=== PATIENT | male | born 1975 | race Caucasian/White ===

== ENCOUNTER 2019-09-05 02:59 | Emergency (ER) | payer BC ==
[~2019-09-05] VITALS: Ht 180.3 cm; Wt 122.5 kg
[2019-09-05] MEDS ORDERED: Ultram50 MG PO (03:25)
[2019-09-05 04:33] LABS: Source, Urine Clean Catch
[2019-09-05 04:36] LABS: Bilirubin, Urine Neg (Neg); Blood, Urine Neg (Neg); Glucose Qualitative, Urine Neg (Neg); Ketones, Urine Neg (Neg); Leukocyte Esterase, Urine Neg (Neg); Nitrite, Urine Neg (Neg); Protein, Urine Neg (Neg); Urobilinogen, Urine NORM (Normal)
[2019-09-05 04:41] LABS: Appearance, Urine Clear (Clear); Color, Urine Yellow (P-Yellow)
[2019-09-05] MEDS ORDERED: Prednisone20 MG PO (05:38)
[2019-09-05] MEDS ORDERED: CYCL10 PO (05:38)
== END 2019-09-05 05:55 | disposition home or self-care (01) ==
LOC: ER 02:59
PROVIDERS: Emergency Medicine
DX: M54.5 Low back pain (principal)
CPT/HCPCS: 81003; 96372; 99283-25; A9270; J1170; J1885

== ENCOUNTER 2021-03-27 23:24 | Emergency (ER) | payer BC ==
[~2021-03-27] VITALS: Ht 180.3 cm; Wt 117.9 kg
[~2021-03-27 23:24] MED LIST: CYCL10 PO; Prednisone20 MG PO; Ultram50 MG PO
[2021-03-28] MEDS ORDERED: CYCL10 PO (00:42)
[2021-03-28] MEDS ORDERED: LISI20 PO (01:05)
== END 2021-03-28 01:45 | disposition home or self-care (01) ==
LOC: ER 23:24
DX: S39.012A Strain of muscle, fascia and tendon of lower back, initial encounter (principal); Z79.899 Other long term (current) drug therapy; Z79.52 Long term (current) use of systemic steroids; X50.9XXA Other and unspecified overexertion or strenuous movements or postures, initial encounter
CPT/HCPCS: 99283; A9270

== ENCOUNTER 2025-01-18 03:15 | Emergency (ER) | payer BC ==
[~2025-01-18] VITALS: Ht 180.3 cm; Wt 136.1 kg
[~2025-01-18 03:15] MED LIST changes: +LISI20 PO
[2025-01-18 04:28] LABS: BASOPHILS ABSOLUTE AUTO 0.04 K/mm3 (0.00-0.23); BASOPHILS PERCENT AUTO 0 % (0-2); EOSINOPHILS ABSOLUTE AUTO 0.05 K/mm3 (0.00-0.68); EOSINOPHILS PERCENT AUTO 1 % (0-6); Hematocrit 37.9 % (37.0-53.0); Hemoglobin 13.4 g/dL (13.5-17.5); IMMATURE GRAN ABSOLUTE AUTO 0.03 K/mm3 (0.00-0.10); IMMATURE GRAN PERCENT AUTO 0 % (0-1); LYMPHOCYTES ABSOLUTE AUTO 0.91 K/mm3 (0.84-5.20); LYMPHOCYTES PERCENT AUTO 9 % (21-46); MONOCYTES ABSOLUTE AUTO 0.72 K/mm3 (0.16-1.47); MONOCYTES PERCENT AUTO 7 % (4-13); Mean Corpuscular HGB 30.5 pg (26.0-34.0); Mean Corpuscular HGB Conc 35.4 g/dL (31.5-36.5); Mean Corpuscular Volume 86 fL (80-100); Mean Platelet Volume 9.7 fL (9.1-12.4); NEUTROPHILS ABSOLUTE AUTO 8.17 K/mm3 (1.96-9.15); NEUTROPHILS PERCENT AUTO 82 % (41-73); Platelet Count 314 K/mm3 (150-400); RDW Standard Deviation 41.2 fL (35.1-46.3); White Blood Cell Count 9.92 K/mm3 (4.00-11.30)
[2025-01-18 04:52] LABS: Albumin, Blood 3.3 g/dL (3.4-5.0); Albumin/Globulin Ratio 0.7 (0.8-1.8); Bilirubin, Total 1.5 mg/dL (0.1-1.0); Bun/Creatinine Ratio 11.4 (12.0-20.0); Calcium, Blood 9.1 mg/dL (8.5-10.1); Creatinine, Blood 0.97 mg/dL (0.60-1.20); Globulin, Blood 4.6 g/dL (2.2-4.0); Potassium, Blood 3.6 mmol/L (3.5-5.5); Total Protein, Blood 7.9 g/dL (6.4-8.2)
[2025-01-18] MEDS ORDERED: NS 1,000 ML IV SCH (04:55)
[2025-01-18] MEDS ORDERED: Ketorolac Tromethamine 30mg Vial IV ONE (05:00)
[2025-01-18 05:04] LABS: Influenza A, PCR NEGATIVE (NEGATIVE); Influenza B, PCR NEGATIVE (NEGATIVE); Resp Syncytial Virus, PCR NEGATIVE (NEGATIVE); SARS-Cov-2 (COVID-19) PCR, MMC NEGATIVE (NEGATIVE)
[2025-01-18 05:54] LABS: Source, Urine Clean Catch
[2025-01-18] MEDS ORDERED: Amoxicillin/Clavulanate K 875 MG Tab PO ONE (05:55)
[2025-01-18] MEDS ORDERED: Azithromycin 250 MG Tab PO ONE (05:55)
[2025-01-18] MEDS ORDERED: AMOCLA875 PO (05:57)
[2025-01-18] MEDS ORDERED: AZIT250 PO (05:57)
[2025-01-18 05:59] LABS: Appearance, Urine Clear (Clear); Bilirubin, Urine Neg (Neg); Blood, Urine 2+ (Neg); Color, Urine Yellow (P-Yellow); Glucose Qualitative, Urine 4+ (Neg); Ketones, Urine 2+ (Neg); Leukocyte Esterase, Urine Neg (Neg); Nitrite, Urine Neg (Neg); Protein, Urine 2+ (Neg); Urobilinogen, Urine 1+ (Normal)
[2025-01-18 06:27] LABS: Bacteria Rare /hpf; Red Blood Cells, Urine 0-2 /hpf (0-2); Squamous Epithelial Cells Rare /hpf (Few); White Blood Cells, Urine 0-2 /hpf (0-5)
[2025-01-18 06:29] LABS: Amorphous Light (0-Heavy)
[2025-01-18 06:45] VITALS: BP 123/74
[2025-01-18] MEDS ORDERED: ATORVASTATIN CA20 MG PO (17:04)
[2025-01-18] MEDS ORDERED: BASAGLAR K100 UNIT/1 SC (20:20)
[2025-01-18] MEDS ORDERED: JARDIANCE10 MG PO (20:21)
[2025-01-18] MEDS ORDERED: Lipitor20 MG PO (20:22)
[2025-01-18] MEDS ORDERED: PIOG30 PO (20:23)
[2025-01-19] MEDS ORDERED: Prinivil10 MG PO (14:34)
== END 2025-01-18 06:47 | disposition home or self-care (01) ==
LOC: ER 03:15
PROVIDERS: Emergency Medicine
DX: J18.9 Pneumonia, unspecified organism (principal); E86.0 Dehydration; R73.9 Hyperglycemia, unspecified; Z79.899 Other long term (current) drug therapy
CPT/HCPCS: 0241U; 71046; 80053; 81001; 83690; 85025; 96374; 99284-25; J1885; J7030

== ENCOUNTER 2025-01-18 15:26 | Inpatient (IN) | payer BC ==
[~2025-01-18] VITALS: Ht 180.3 cm; Wt 128.1 kg
[~2025-01-18 15:26] MED LIST changes: +AMOCLA875 PO; +AZIT250 PO
[2025-01-18] MEDS ORDERED: Ondansetron HCl 2 MG / ML 2ML Vial IV ONE (15:35)
[2025-01-18 15:54] LABS: BASOPHILS ABSOLUTE AUTO 0.05 K/mm3 (0.00-0.23); BASOPHILS PERCENT AUTO 0 % (0-2); EOSINOPHILS PERCENT AUTO 1 % (0-6); Hematocrit 37.6 % (37.0-53.0); Hemoglobin 13.2 g/dL (13.5-17.5); IMMATURE GRAN ABSOLUTE AUTO 0.05 K/mm3 (0.00-0.10); IMMATURE GRAN PERCENT AUTO 0 % (0-1); LYMPHOCYTES ABSOLUTE AUTO 1.93 K/mm3 (0.84-5.20); LYMPHOCYTES PERCENT AUTO 17 % (21-46); MONOCYTES ABSOLUTE AUTO 0.95 K/mm3 (0.16-1.47); MONOCYTES PERCENT AUTO 8 % (4-13); Mean Corpuscular HGB 30.6 pg (26.0-34.0); Mean Corpuscular HGB Conc 35.1 g/dL (31.5-36.5); Mean Corpuscular Volume 87 fL (80-100); Mean Platelet Volume 9.6 fL (9.1-12.4); NEUTROPHILS ABSOLUTE AUTO 8.42 K/mm3 (1.96-9.15); NEUTROPHILS PERCENT AUTO 73 % (41-73); Platelet Count 360 K/mm3 (150-400); RDW Coefficient Variation 13.1 % (11.7-14.2); RDW Standard Deviation 42.3 fL (35.1-46.3); Red Blood Cell Count 4.31 M/mm3 (4.30-5.90)
[2025-01-18] MEDS ORDERED: CefTRIAXone Sodium 1,000 MG in NS 100 ML IV ONE (16:00)
[2025-01-18] MEDS ORDERED: NS 1,000 ML IV SCH (16:00)
[2025-01-18] MEDS ORDERED: Metoclopramide HCl 5MG / ML 2ML Vial IV ONE (16:00)
[2025-01-18] MEDS ORDERED: Azithromycin 500 MG in NS 250 ML IV ONE (16:00)
[2025-01-18] MEDS ORDERED: Ketorolac Tromethamine 15mg Vial IV ONE (16:00)
[2025-01-18 16:18] LABS: Albumin, Blood 3.3 g/dL (3.4-5.0); Albumin/Globulin Ratio 0.7 (0.8-1.8); Bilirubin, Total 1.3 mg/dL (0.1-1.0); Bun/Creatinine Ratio 12.6 (12.0-20.0); Calcium, Blood 8.5 mg/dL (8.5-10.1); Creatinine, Blood 1.03 mg/dL (0.60-1.20); Globulin, Blood 4.5 g/dL (2.2-4.0); Potassium, Blood 3.7 mmol/L (3.5-5.5); Total Protein, Blood 7.8 g/dL (6.4-8.2)
[2025-01-18] MEDS ORDERED: ATORVASTATIN CA20 MG PO (17:04)
[2025-01-18] MEDS ORDERED: Lactated Ringer's 1,000 ML IV ONE (17:20)
[2025-01-18] MEDS ORDERED: Guaifenesin/Dextromethorphan Syrup 5 ML UDC PO PRN (17:25)
[2025-01-18] MEDS ORDERED: Ondansetron HCl 2 MG / ML 2ML Vial IV PRN (17:25)
[2025-01-18] MEDS ORDERED: Lactated Ringer's 1,000 ML IV SCH (17:25)
[2025-01-18] MEDS ORDERED: Acetaminophen 500 MG Tab PO ONE (18:00)
[2025-01-18] MEDS ORDERED: Acetaminophen 500 MG Tab PO PRN (20:00)
[2025-01-18 20:04] VITALS: BP 134/77
[2025-01-18] MEDS ORDERED: BASAGLAR K100 UNIT/1 SC (20:20)
[2025-01-18] MEDS ORDERED: JARDIANCE10 MG PO (20:21)
[2025-01-18] MEDS ORDERED: Lipitor20 MG PO (20:22)
[2025-01-18] MEDS ORDERED: PIOG30 PO (20:23)
[2025-01-18] MEDS ORDERED: Lactobacil 2-S.Thermo-Bifido 1 1 Cap PO SCH (21:00)
[2025-01-18] MEDS ORDERED: GuaiFENesin 600 MG TabCR PO SCH (21:00)
--- NOTE | 2025-01-19 01:15 | NUR ---
TRANSFER NOTE/SHIFT SUMMARY @2029 PT ARRIVED TO THE MEDICAL FLOOR RM#[id number]. PT BROUGHT ALL HIS BELONINGS WITH HIM. PT TRANSFERRED FROM THE [facility] INDEPENDENTLY TO THE HOSPITAL BED. ELIZABETH NAIK COMPLETED THE ADMISSION ASSESSMENT, SKIN CHECK WITH THIS BUFFING MACHINE OPERATOR. MED REC COMPLETED BY THIS BUFFING MACHINE OPERATOR. PT'S BY THE BEDSIDE. BROUGHT IN PT'S MEDICATION BOTTLES AND HELPED WITH THE MED REC. PT IS A/O X4, PLEASANT. INDEPENDENT, CONTINENT. BASELINE ON RA, NOW ON 3L VIA NC. PT DENIES SOB AT HS. PT REPORTS FEELING BETTER SINCE YESTERDAY. LR INFUSING ORDERED. FEBRILE, PRN TYLENOL AND ICE PACK GIVEN TO THE PT. PT DENIES N/V. PT REPORTS POOR APPETITE. IV 20G ON RIGHT HAND. SKIN IS CLEAR. BG ORDER FOR AC. PT REPORTS HAVING INFLUENZA A WEEK AGO. PT REPORTS HAVING COLONOSOPY TWO WEEKS AGO, AND SINCE THEN HAVING LOOSE STOOLS OR CONSTIPATION. LAST BM 01/17/25. EDUCATED TRAVEL REGISTERED NURSE ICU LIGHT, BED AT THE LOWEST POSITION, CALL LIGHT W/I REACH. PT IS ABLE TO MAKE HIS NEEDS KNOWN AND IS COOPERATIVE WITH CARE.
[2025-01-19 02:50] VITALS: BP 144/77
[2025-01-19 05:24] LABS: BASOPHILS ABSOLUTE AUTO 0.03 K/mm3 (0.00-0.23); BASOPHILS PERCENT AUTO 0 % (0-2); EOSINOPHILS ABSOLUTE AUTO 0.02 K/mm3 (0.00-0.68); EOSINOPHILS PERCENT AUTO 0 % (0-6); Hemoglobin 11.1 g/dL (13.5-17.5); IMMATURE GRAN ABSOLUTE AUTO 0.03 K/mm3 (0.00-0.10); IMMATURE GRAN PERCENT AUTO 0 % (0-1); LYMPHOCYTES ABSOLUTE AUTO 1.61 K/mm3 (0.84-5.20); LYMPHOCYTES PERCENT AUTO 19 % (21-46); MONOCYTES ABSOLUTE AUTO 0.73 K/mm3 (0.16-1.47); MONOCYTES PERCENT AUTO 9 % (4-13); Mean Corpuscular HGB 30.3 pg (26.0-34.0); Mean Corpuscular HGB Conc 34.7 g/dL (31.5-36.5); Mean Corpuscular Volume 87 fL (80-100); Mean Platelet Volume 10.1 fL (9.1-12.4); NEUTROPHILS ABSOLUTE AUTO 5.87 K/mm3 (1.96-9.15); NEUTROPHILS PERCENT AUTO 71 % (41-73); Platelet Count 325 K/mm3 (150-400); RDW Coefficient Variation 13.1 % (11.7-14.2); RDW Standard Deviation 41.9 fL (35.1-46.3); Red Blood Cell Count 3.66 M/mm3 (4.30-5.90); White Blood Cell Count 8.29 K/mm3 (4.00-11.30)
[2025-01-19 05:54] LABS: Albumin, Blood 2.6 g/dL (3.4-5.0); Albumin/Globulin Ratio 0.6 (0.8-1.8); Bilirubin, Total 1.1 mg/dL (0.1-1.0); Bun/Creatinine Ratio 9.3 (12.0-20.0); Calcium, Blood 7.7 mg/dL (8.5-10.1); Creatinine, Blood 0.97 mg/dL (0.60-1.20); Potassium, Blood 3.5 mmol/L (3.5-5.5); Total Protein, Blood 6.6 g/dL (6.4-8.2)
--- NOTE | 2025-01-19 06:02 | NUR ---
rechecked temperature at 0415 it was 98.8
[2025-01-19 07:27] VITALS: BP 111/96
[2025-01-19] MEDS ORDERED: Insulin Human Lispro 100 Units/ML 3ML Syringe SC SCH (07:30)
[2025-01-19] MEDS ORDERED: NS 250 ML IV PRN (07:50)
[2025-01-19] MEDS ORDERED: Azithromycin 500 MG in NS 250 ML IV SCH (09:00)
[2025-01-19] MEDS ORDERED: CefTRIAXone Sodium 1,000 MG in NS 100 ML IV SCH (09:00)
[2025-01-19] MEDS ORDERED: Enoxaparin 40 MG/0.4 ML SYR SC SCH (09:00)
[2025-01-19] MEDS ORDERED: Lisinopril 20 MG Tab PO SCH (09:00)
[2025-01-19] MEDS ORDERED: Insulin Glargine-Yfgn 100 Unit/mL 3 ML SYR SC SCH (09:00)
[2025-01-19] MEDS ORDERED: Potassium Chloride 20 MEQ TabCR PO ONE (11:00)
[2025-01-19] MEDS ORDERED: Prinivil10 MG PO (14:34)
[2025-01-19 15:22] VITALS: BP 105/66
--- NOTE | 2025-01-19 17:04 | NUR ---
SHIFT SUMMARY: PATIENT IS A&OX4/INDEPENDENT, ON ROOMAIR, HAS AN OCCASIONAL COUGH; SOMEWHAT DRY, "SPUTUM" COLLECTED THIS MORNING AND WAS REJECTED FROM THE LAB. PATIENT ATTEMPTED TO RECOLLECT, BUT WAS ONLY ABLE TO GET FROTHY SILIVA. PATIENT HAS C/O NOT FEELING WELL, "FEVERISH", CHILLS, AND BODY ACHES. PATIENT HASN'T BEEN FEBRILE THIS SHIFT. GIVING TYENOL NEEDED/PER REQUEST FOR ACHES. HE CONTINUES TO GET LR AT 125ML/HR, IV ANTIBIOTICS; WHICH HE REPORTS HAS BEEN CAUSING DIARRHEA. HE IS IN BED, AT BEDSIDE, NO SIGNS OR SYMPTOMS OF DISTRESS, PLAN OF CARE ONGOING.
[2025-01-19 20:21] VITALS: BP 123/78
[2025-01-19] MEDS ORDERED: Melatonin 5 MG Tablet PO ONE (21:50)
[2025-01-20 03:04] VITALS: BP 133/76
--- NOTE | 2025-01-20 03:47 | NUR ---
CIRCULAR SAW EDGE FUSER SUMMARY VSS. TEMP TRENDING DOWN (99.4 LATEST). AFTER RECEIVING TYLENOL. IVF AND ANTIBIOTICS INFUSING ORDERED. AT BEDSISDE FOR PT COMFORT ANS ASSIST TO BATHROOM PER PT REQUEST. ALERT AND ORIENTED. COOPERATIVE. UP AD BECCA. ABLE TO REPOSITION SELF IN BED FOR COMFORT. PT REPORTED LOOSE STOOL PER AM RN, PROBIOTIC ADMINISTERED ORDERED. LUNG SOUNDS DIMINISHED. HAS BEEN RESTING QUIETLY WITH FEW INTERRUPTIONS. CALL LIGHT IN REACH, RAILS UP X 2 AND BED IN LOW POSITION FOR SAFETY. WILL CONTINUE TO MONITOR.
[2025-01-20 07:20] LABS: BASOPHILS ABSOLUTE AUTO 0.03 K/mm3 (0.00-0.23); BASOPHILS PERCENT AUTO 0 % (0-2); EOSINOPHILS ABSOLUTE AUTO 0.17 K/mm3 (0.00-0.68); EOSINOPHILS PERCENT AUTO 2 % (0-6); Hematocrit 34.2 % (37.0-53.0); Hemoglobin 11.5 g/dL (13.5-17.5); IMMATURE GRAN ABSOLUTE AUTO 0.02 K/mm3 (0.00-0.10); IMMATURE GRAN PERCENT AUTO 0 % (0-1); LYMPHOCYTES PERCENT AUTO 24 % (21-46); MONOCYTES ABSOLUTE AUTO 0.56 K/mm3 (0.16-1.47); MONOCYTES PERCENT AUTO 7 % (4-13); Mean Corpuscular HGB Conc 33.6 g/dL (31.5-36.5); Mean Corpuscular Volume 89 fL (80-100); Mean Platelet Volume 9.3 fL (9.1-12.4); NEUTROPHILS ABSOLUTE AUTO 5.02 K/mm3 (1.96-9.15); NEUTROPHILS PERCENT AUTO 66 % (41-73); Platelet Count 327 K/mm3 (150-400); RDW Coefficient Variation 13.2 % (11.7-14.2); RDW Standard Deviation 43.2 fL (35.1-46.3); Red Blood Cell Count 3.83 M/mm3 (4.30-5.90)
[2025-01-20 07:35] LABS: Bun/Creatinine Ratio 6.1 (12.0-20.0); Creatinine, Blood 0.82 mg/dL (0.60-1.20); Potassium, Blood 3.5 mmol/L (3.5-5.5)
[2025-01-20 07:42] VITALS: BP 137/90
[2025-01-20] MEDS ORDERED: Potassium Chloride 20 MEQ TabCR PO ONE (12:00)
[2025-01-20 15:29] VITALS: BP 135/92
[2025-01-20] MEDS ORDERED: Benzonatate 100 MG Cap PO PRN ×2 (16:15)
[2025-01-20] MEDS ORDERED: Chlorphiramine/Hydrod Polistir 5 ML UDC PO PRN (16:20)
[2025-01-20 19:35] VITALS: BP 129/95
[2025-01-20] MEDS ORDERED: Melatonin 5 MG Tablet PO ONE (22:50)
--- NOTE | 2025-01-21 03:31 | NUR ---
HR REPRESENTATIVE SUMMARY VSS. AT BEDSIDE FOR PT COMFORT. REPORTED SOME BLEEDING AND DIFFICULTY WITH COUGHING DUE TO DRYNESS. O2 PLACED ON HUMIDIFIER, COUGH MED GIVEN AND SLEEP APPLICATION CONSULTANT. VOICED HE WOULD GIVE SPUTUM SPECIMEN WHEN HE COULD, CONTAINER GIVEN HIM, AWAITING SAID SPECIMEN. UP AD BECCA, IVF OF LR INFUSING AT 125. COUGH DECREASED AND HAS BEEN RESTING MORE QUIETLY. HOB ELEVATED. ABLE TO REPOSITION SELF IN BED WITHOUT ASSIST. CALL LIGHT IN REACH. RAILS UP X 2 AND BED IN LOW POSITION FOR SAFETY. WILL CONTINUE TO MONITOR.
[2025-01-21 05:23] VITALS: BP 123/82
[2025-01-21 07:48] VITALS: BP 124/82
[2025-01-21 08:47] LABS: BASOPHILS ABSOLUTE AUTO 0.04 K/mm3 (0.00-0.23); BASOPHILS PERCENT AUTO 1 % (0-2); EOSINOPHILS ABSOLUTE AUTO 0.27 K/mm3 (0.00-0.68); EOSINOPHILS PERCENT AUTO 5 % (0-6); Hematocrit 33.9 % (37.0-53.0); Hemoglobin 11.5 g/dL (13.5-17.5); IMMATURE GRAN ABSOLUTE AUTO 0.02 K/mm3 (0.00-0.10); IMMATURE GRAN PERCENT AUTO 0 % (0-1); LYMPHOCYTES ABSOLUTE AUTO 1.48 K/mm3 (0.84-5.20); LYMPHOCYTES PERCENT AUTO 27 % (21-46); MONOCYTES ABSOLUTE AUTO 0.47 K/mm3 (0.16-1.47); MONOCYTES PERCENT AUTO 9 % (4-13); Mean Corpuscular HGB 30.1 pg (26.0-34.0); Mean Corpuscular HGB Conc 33.9 g/dL (31.5-36.5); Mean Corpuscular Volume 89 fL (80-100); Mean Platelet Volume 9.3 fL (9.1-12.4); NEUTROPHILS ABSOLUTE AUTO 3.14 K/mm3 (1.96-9.15); NEUTROPHILS PERCENT AUTO 58 % (41-73); Platelet Count 321 K/mm3 (150-400); RDW Coefficient Variation 13.1 % (11.7-14.2); RDW Standard Deviation 42.5 fL (35.1-46.3); Red Blood Cell Count 3.82 M/mm3 (4.30-5.90); White Blood Cell Count 5.42 K/mm3 (4.00-11.30)
[2025-01-21 08:58] LABS: Bun/Creatinine Ratio 5.5 (12.0-20.0); Calcium, Blood 8.4 mg/dL (8.5-10.1); Creatinine, Blood 0.72 mg/dL (0.60-1.20); Potassium, Blood 3.4 mmol/L (3.5-5.5)
[2025-01-21] MEDS ORDERED: ACET500 PO (11:36)
[2025-01-21] MEDS ORDERED: BENZ100A PO (11:37)
[2025-01-21] MEDS ORDERED: VISBIOME 112.51 EACH PO (11:42)
[2025-01-21] MEDS ORDERED: AMOX-CLAV 875-1 EAC1 PO (11:46)
[2025-01-21] MEDS ORDERED: [UNRECOGNIZED DRUG - OTHER] PO (11:46)
[2025-01-21] MEDS ORDERED: AZIT250 PO (11:47)
--- NOTE | 2025-01-21 12:47 | NUR ---
PT DISCHARGED TO HOME WITH . DISCHARGE INSTRUCTIONS PROVIDED AND EDUCATED ON AT TIME OF DISCHARGE. ALL VALUABLES RETURNED AND SENT HOME WITH THE PT.
== END 2025-01-21 12:41 | disposition home or self-care (01) | DRG 871 ==
LOC: ER 15:26 → MEDS 16:58 → ENPENDDIS 01-21 11:25 → MEDS 01-21 12:41
PROVIDERS: Internal Medicine; Nurse Practitioner Acute Care; Physician Assistant; ADMIT Internal Medicine
DX: A41.89 Other specified sepsis (principal); J10.08 Influenza due to other identified influenza virus with other specified pneumonia; J96.01 Acute respiratory failure with hypoxia; J15.9 Unspecified bacterial pneumonia; Z68.41 Body mass index [BMI] 40.0-44.9, adult; E87.1 Hypo-osmolality and hyponatremia; E87.20 Acidosis, unspecified; R65.20 Severe sepsis without septic shock; E66.01 Morbid (severe) obesity due to excess calories; I10 Essential (primary) hypertension; D64.9 Anemia, unspecified; E11.65 Type 2 diabetes mellitus with hyperglycemia; Z99.81 Dependence on supplemental oxygen; Z98.1 Arthrodesis status; Z79.899 Other long term (current) drug therapy; Z79.2 Long term (current) use of antibiotics; E86.0 Dehydration
CPT/HCPCS: 0241U; 36415; 71046; 80048; 80053; 81001; 82947; 83605; 83690; 85025; 87040; 96361; 96365; 96374; 96375; 99284-25; 99285-25; A9270; G0378; J0456; J0696; J1650; J1815; J1885; J2405; J2765; J7030; J7050; J7120